=== PATIENT | male | born 1925 | race Caucasian/White ===

== ENCOUNTER 2016-12-02 15:01 | Emergency (ER) | payer MEDICARE ==
[~2016-12-02] VITALS: Ht 170.2 cm; Wt 68.0 kg
[2016-12-02] MEDS ORDERED: AMOX-355 PO (15:36)
[2016-12-02] MEDS ORDERED: HYDR-757 PO (15:36)
--- NOTE | 2016-12-02 15:36 | ED Upper Extremity ---
General Stated Complaint: L HAND WOUND Source: patient Exam Limitations: no limitations History of Present Illness Time seen by provider: 15:33 Initial Comments To ER A by adult children with reports of a wound to the dorsal aspect left hand. This morning he was working on his chicken house the hammer and nails when a nail slipped and struck him in the back of the wrist. This punctured the skin that fell out on its own. He rubbed some kerosene on it as he states that his father hours did that for cuts. He had no pain initially but now has pain and swelling at the site. Onset: this morning Pain/Injury Location: left wrist Modifying Factors: Worse With Movement Allergies and Home Medications Allergies Coded Allergies: No Known Drug Allergies (Unverified , 12/02/16) Home Medications Amoxicillin/Potassium Clav 1 Each Tablet, 1 EACH PO BID, #14 Prescribed by: REE KEITH on 12/02/16 1536 Hydrocodone/Acetaminophen 1 Each Tablet, 1 EACH PO Q4H PRN for PAIN-SEVERE, #20 Prescribed by: REE KEITH on 12/02/16 1536 Constitutional: see HPI EENTM: see HPI Respiratory: no symptoms reported Cardiovascular: no symptoms reported Genitourinary: no symptoms reported Musculoskeletal: see HPI Skin: no symptoms reported Past Vzvwrht-Veveox-Aphxgn Hx Patient Social History Recent Foreign Travel: No Contact w/Someone Who Travel: No Physical Exam Vital Signs Vital Sign - Last 12Hours 12/02/16 15:25 Temp 98.0 Pulse 60 Resp 18 B/P (MAP) 125/114 Pulse Ox 98 Capillary Refill : General Appearance: WD/WN, no apparent distress HEENT: PERRL/EOMI, normal ENT inspection Neck: non-tender, full range of motion Respiratory: no respiratory distress, no accessory muscle use Gastrointestinal: non tender, soft Shoulder: normal inspection, non-tender Elbow/Forearm: normal inspection, non-tender, Left Wrist: Yes soft tissue tenderness (puncture wound over the dorsal aspect of the wrist. There is some surrounding swelling and mild erythema.), Yes swelling Hand: normal inspection, non-tender, Left Neurologic/Psychiatric: alert, normal mood/affect, oriented x 3 Skin: normal color, warm/dry Progress/Results/Core Measures Results/Orders My Orders Orders - REE KEITH [employer] Dipht,Pertuss(Acell),Tet Adult (Boostrix (12/02/16 15:45) Amoxicillin/Clavulanate Tablet (Augmenti (12/02/16 15:45) Hydrocodone/Apap 5/325 Tablet (Lortab 5 (12/02/16 15:45) Ketorolac Injection (Toradol Injection) (12/02/16 15:45) Wrist, Left, 3 Views Or More (12/02/16 15:31) Medications Given in ED Current Medications Medications Dose Ordered Sig/Shant Route Start Time Stop Time Status Last Admin Dose Admin Acetaminophen/ Hydrocodone Bitart 1 tab ONCE ONCE PO 12/02/16 15:45 12/02/16 15:46 DC 12/02/16 15:48 1 TAB Diphtheria/ Tetanus/Acell Pertussis 0.5 ml ONCE ONCE IM 12/02/16 15:45 12/02/16 15:46 DC 12/02/16 15:52 0.5 ML Ketorolac Tromethamine 30 mg ONCE ONCE IM 12/02/16 15:45 12/02/16 15:46 DC 12/02/16 15:53 30 MG Vital Signs/I&O Vital Sign - Last 12Hours 12/02/16 15:25 Temp 98.0 Pulse 60 Resp 18 B/P (MAP) 125/114 Pulse Ox 98 Progress Note : Progress Note NAME: ROSELINE MARTINEZ [facility] REC#: [id number] PT STATUS: REG ER : 1925 PHYSICIAN: REE KEITH APRN ADMIT DATE: 12/02/16/ER Draft Date of Exam:12/02/16 WRIST, LEFT, 3 VIEWS OR MORE INDICATION: Wrist pain with dermal laceration. COMPARISON: None available. TECHNIQUE: Three views of the left wrist. FINDINGS: No radiopaque foreign body. No acute fracture. 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 No widening of scapholunate interval to indicate scapholunate ligament injury. IMPRESSION: 1. No radiopaque foreign body or acute fracture. 2. Chronic mineralization of the TFCC complex. 3. Degenerative changes of the thumb base. Dictated on workstation # [id number] Dict: 12/02/16 1544 Trans: 12/02/16 1558 [facility] [id number] Interpreted by: KATELYN STOLL MD Electronically signed by: Departure Impression Impression: Primary Impression: Puncture wound of wrist Disposition: HOME, SELF-CARE Condition: Stable Departure-Patient Inst. Decision time for Depature: 15:35 Referrals: MARIE LAGUERRE MD (PCP/Family) Primary Care Physician Patient Instructions: Wound Care Add. Discharge Instructions: 1. Follow-up with your regular doctor later this week for recheck 2. Pain medication as directed 3. Antibiotics as directed 4. Return to ER for any worsening Scripts Amoxicillin/Potassium Clav (Augmentin 500-125 Tablet) 1 Each Tablet 1 EACH PO BID, #14 TAB Prov: REE KEITH APRN 12/02/16 Hydrocodone/Acetaminophen ([place] 5-325 Tablet) 1 Each Tablet 1 EACH PO Q4H Y for PAIN-SEVERE, #20 TAB Prov: REE KEITH APRN 12/02/16 Copy Copies To 1: MARIE LAGUERRE MD, PETER J APRN Dec 02, 2016 15:36
[2016-12-02] MEDS ORDERED: AUGMENTIN 875 MG TAB (AMOXICILLIN/CLAVULANATE) PO SCH (15:45)
[2016-12-02] MEDS ORDERED: HYDROcodone/APAP 5 MG/325 MG (LORTAB) TAB PO ONE (15:45)
[2016-12-02] MEDS ORDERED: TETANUS,DIPTH,PERTUSS P/F (BOOSTRIX) 0.5 ML VIAL IM ONE (15:45)
[2016-12-02] MEDS ORDERED: KETOROLAC 30 MG/ML VIAL IM ONE (15:45)
--- NOTE | 2016-12-02 15:58 | Diagnostic Imaging Report ---
INDICATION: Wrist pain with dermal laceration. COMPARISON: None available. TECHNIQUE: Three views of the left wrist. FINDINGS: No radiopaque foreign body. No acute fracture. 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 No widening of scapholunate interval to indicate scapholunate ligament injury. IMPRESSION: 1. No radiopaque foreign body or acute fracture. 2. Chronic mineralization of the TFCC complex. 3. Degenerative changes of the thumb base. Dictated by: Dictated on workstation # [id number]
[2016-12-02 16:37] VITALS: BP 125/90
== END 2016-12-02 16:38 | disposition home or self-care (01) ==
LOC: EDUNIT# 15:01 → ER 15:03
DX: S61.532A Puncture wound without foreign body of left wrist, initial encounter (principal); Z23 Encounter for immunization; W45.0XXA Nail entering through skin, initial encounter; Y92.59 Other trade areas as the place of occurrence of the external cause
CPT/HCPCS: 73110; 90471; 90715; 96372; 99284